=== PATIENT | male | born 1980 | race Caucasian/White ===

== ENCOUNTER 2021-02-03 19:44 | Emergency (ER) | payer OTHER ==
[2021-02-03] MEDS ORDERED: LODINE CAP 300300 MG PO (21:18)
== END 2021-02-03 21:22 | disposition home or self-care (01) ==
LOC: ER1 19:44
DX: M79.661 Pain in right lower leg (principal); F17.210 Nicotine dependence, cigarettes, uncomplicated
CPT/HCPCS: 85379; 85610; 85730; 99283

== ENCOUNTER → 2021-04-03 | Outpatient (CLI) | payer OTHER ==
[~2021-04-03] MED LIST: LODINE CAP 300300 MG PO
== END ==
LOC: KOH-I 13:48
DX: J01.81 Other acute recurrent sinusitis (principal); J32.4 Chronic pansinusitis
CPT/HCPCS: 70486